=== PATIENT | female | born 1990 | race Caucasian/White ===

== ENCOUNTER 2022-06-05 17:10 | Emergency (ER) | payer OTHER ==
[2022-06-05 17:33] VITALS: BP 128/72; PULSE 97; RESP 20; TEMP 98.3; BMI 31.3
== END 2022-06-05 21:30 | disposition home or self-care (01) ==
LOC: JER 17:10
DX: R05.1 Acute cough (principal)
CPT/HCPCS: 99281-25

== ENCOUNTER → 2022-06-17 | Day surgery (SDC) | payer OTHER ==
[2022-06-15 15:55] VITALS: BMI 31.3
[~2022-06-17] MED LIST: DEXAMETHASONE SOD PHOSPHATE 10 MG/1 ML VIAL ONE; LIDOCAINE HCL/PF 1% SDV 5ML VIAL ONE
== END | disposition home or self-care (01) ==
LOC: JASU-SURG 04:14
PROVIDERS: ATTEND Pain Medicine Pain Medicine
DX: Z53.8 Procedure and treatment not carried out for other reasons (principal)
CPT/HCPCS: J1100

== ENCOUNTER 2023-11-27 18:44 | Emergency (ER) | payer OTHER ==
[2023-11-27 18:58] VITALS: BP 109/72; PULSE 76; RESP 18; TEMP 98.1; BMI 23.5
[2023-11-27] MEDS ORDERED: KETOROLAC TROMETHAMINE 30 MG/1 ML VIAL ONE (19:51)
[2023-11-27] MEDS ORDERED: ACETAMINOPHEN 500 MG TABLET (FP) ONE (19:51)
[2023-11-27] MEDS: KETOROLAC TROMETHAMINE 30 MG/1 ML VIAL IM ONE (19:56)
[2023-11-27] MEDS: ACETAMINOPHEN 500 MG TABLET (FP) PO ONE (19:57)
== END 2023-11-27 20:23 | disposition home or self-care (01) ==
LOC: JERFT 18:44
PROC: 3E0133Z Introduction of Anti-inflammatory into Subcutaneous Tissue, Percutaneous Approach (ICD-10-PCS; principal; 2023-11-27)
DX: S93.402A Sprain of unspecified ligament of left ankle, initial encounter (principal); X50.1XXA Overexertion from prolonged static or awkward postures, initial encounter
CPT/HCPCS: 73610-TC-LT-FY; 73630-TC-LT; 96372; 99284-25